=== PATIENT | female | born 1985 | race Caucasian/White ===

== ENCOUNTER 2018-01-04 19:28 | Emergency (ER) | payer BC ==
[~2018-01-04] VITALS: Ht 162.6 cm; Wt 50.0 kg
[~2018-01-04 19:28] MED LIST: AMBI10TA PO; CITA10SO PO; HYDR-3533 PO; IBUP800T23 PO; PRED50TA PO; XANA1TAB6 PO; ZYRT10TA12 PO
[2018-01-04 19:31] VITALS: BP 130/71; PULSE 63; RESP 22; TEMP 98.1; O2SAT 100
[2018-01-04] MEDS ORDERED: LEXA20TA PO (19:36)
[2018-01-04] MEDS ORDERED: DIAZ2 PO (19:36)
[2018-01-04] MEDS ORDERED: MORPHINE SULFATE 2 MG/ML INJ IV PUSH ONE (19:45)
[2018-01-04] MEDS ORDERED: KETOROLAC TROMETHAMINE 30 MG/ML (IVP) VIAL IV PUSH ONE (19:45)
[2018-01-04 20:00] VITALS: BP 89/54; PULSE 111; RESP 18; O2SAT 90
[2018-01-04] MEDS ORDERED: LORazepam 2 MG/ML VIAL IV PUSH ONE (20:00)
--- NOTE | 2018-01-04 20:00 | PD ---
HPI Chief Complaint: Abdominal Pain Time Seen by Provider: 19:36 Travel History International Travel<30 days: No Contact w/Intl Traveler<30days: No Traveled to known affect area: No History of Present Illness HPI Patient is a 32-year-old female coming in complaining of severe pelvic area pain and diffuse abdominal pain started 1 hour ago although she says she has been having some menstrual-like cramps for the last 2 days now is so severe the entire pelvic area denies discharge denies trauma. She does report that she has had a history of constipation and it is possible that this is related to that. She denies any change in medications she denies dysuria she does have severe central abdomen pelvic cramps not relieved by Motrin and a history of constipation. She also history of ovarian cyst but has never had a laparoscopic removal of a cyst she is screaming in agony in the ER slightly pain appearances out of proportion to most likely pathology. PFSH Past Medical History Anxiety: Yes Depression: Yes Diminished Hearing: No Immunizations Current: Yes Migraines: Yes : 0 Past Surgical History Other Surgery: Yes (RHINOPLASTY, BREAST AUGMENTATION) Social History Alcohol Use: Yes ( OCCASSIONAL ) Tobacco Use: Yes (occas) Substance Use: No Allergies-Medications (Allergen,Severity, Reaction): Coded Allergies: No Known Allergies (Verified Adverse Reaction, Unknown, 01/04/18) Reported Meds & Prescriptions Reported Meds & Active Scripts Active Miconazole 3 Vaginal Supp (Miconazole Nitrate) 200 Mg Supp 200 Mg VAGINAL HS Hydrocodone-Acetaminophen 5-300 Mg Tab 1 Tab PO Q6H PRN Zofran (Ondansetron HCl) 4 Mg Tab 4 Mg PO Q12HR PRN Cipro (Ciprofloxacin HCl) 500 Mg Tab 500 Mg PO BID Ibuprofen 600 Mg Tab 600 Mg PO Q6H PRN Reported Lexapro (Escitalopram Oxalate) 20 Mg Tab 20 Mg PO EVERY OTHER DAY Valium (Diazepam) 2 Mg Tab Unknown Dose PO DAILY PRN Review of Systems Except as stated in HPI: all other systems reviewed are Neg Gastrointestinal: Positive: Abdominal Pain, Constipation Physical Exam Narrative GENERAL: severe pain reaction screaming in pain diffuse and poor historian of actual area of pain ,, non focal covering her face with a towel SKIN: Warm and dry. HEAD: Atraumatic. Normocephalic. EYES: Pupils equal and round. No scleral icterus. No injection or drainage. ENT: No nasal bleeding or discharge. Mucous membranes pink and moist. NECK: Trachea midline. No JVD. CARDIOVASCULAR: Regular rate and rhythm. RESPIRATORY: No accessory muscle use. Clear to auscultation. Breath sounds equal bilaterally. GASTROINTESTINAL: Abdomen diffuse tenderness with no obvious focus to pain pain in all quadrants and suprapubic mostly soft non distended FAST POC US FAST NEGATIVE FOR FREE FLUID MUSCULOSKELETAL: Extremities without clubbing, cyanosis, or edema. No obvious deformities. NEUROLOGICAL: Awake and alert. No obvious cranial nerve deficits. Motor grossly within normal limits. Five out of 5 muscle strength in the arms and legs. Normal speech. PELVIC BLOOD IN VAULT THAT APPEARS NORMAL menstral blood no CMT normal appearance to cervix PSYCHIATRIC: Appropriate mood and affect; insight and judgment normal. Data Data Last Documented VS Vital Signs Date Time Temp Pulse Resp B/P (MAP) Pulse Ox O2 Delivery O2 Flow Rate FiO2 01/04/18 20:00 111 18 89/54 (66) 90 01/04/18 19:31 98.1 Orders Orders Ketorolac Inj (Toradol Inj) (01/04/18 19:45) Morphine Inj (Morphine Inj) (01/04/18 19:45) Complete Blood Count With Diff (01/04/18 19:38) Comprehensive Metabolic Panel (01/04/18 19:38) Lipase (01/04/18 19:38) Urinalysis - C+S If Indicated (01/04/18 19:38) Beta Hcg (Quant/Titer) (01/04/18 19:38) Lorazepam Inj (Ativan Inj) (01/04/18 20:00) Abdomen, Flat & Upright (01/04/18 ) Us Pelvis Comp W Dop Transvag (01/04/18 ) Wet Prep Profile (01/05/18 00:50) Gc And Chlamydia Pcr (01/05/18 00:50) Labs Laboratory Tests Test 01/04/18 19:47 01/04/18 22:10 01/05/18 00:30 White Blood Count 10.0 TH/MM3 Red Blood Count 4.13 MIL/MM3 Hemoglobin 13.7 GM/DL Hematocrit 39.4 % Mean Corpuscular Volume 95.4 FL Mean Corpuscular Hemoglobin 33.1 PG Mean Corpuscular Hemoglobin Concent 34.7 % Red Cell Distribution Width 12.4 % Platelet Count 263 TH/MM3 Mean Platelet Volume 7.9 FL Neutrophils (%) (Auto) 70.7 % Lymphocytes (%) (Auto) 22.9 % Monocytes (%) (Auto) 4.5 % Eosinophils (%) (Auto) 1.5 % Basophils (%) (Auto) 0.4 % Neutrophils # (Auto) 7.1 TH/MM3 Lymphocytes # (Auto) 2.3 TH/MM3 Monocytes # (Auto) 0.5 TH/MM3 Eosinophils # (Auto) 0.1 TH/MM3 Basophils # (Auto) 0.0 TH/MM3 CBC Comment DIFF FINAL Differential Comment Blood Urea Nitrogen 14 MG/DL Creatinine 0.71 MG/DL Random Glucose 104 MG/DL Total Protein 7.1 GM/DL Albumin 4.1 GM/DL Calcium Level 8.2 MG/DL Alkaline Phosphatase 69 U/L Aspartate Amino Transf (AST/SGOT) 12 U/L Alanine Aminotransferase (ALT/SGPT) 13 U/L Total Bilirubin 0.3 MG/DL Sodium Level 140 MEQ/L Potassium Level 3.4 MEQ/L Chloride Level 108 MEQ/L Carbon Dioxide Level 24.8 MEQ/L Anion Gap 7 MEQ/L Estimat Glomerular Filtration Rate 95 ML/MIN Lipase 72 U/L Human Chorionic Gonadotropin, Quant LESS THAN 1 MIU/ML Urine Color YELLOW Urine Turbidity CLEAR Urine pH 5.5 Urine Specific [place] 1.023 Urine Protein NEG mg/dL Urine Glucose (UA) NEG mg/dL Urine Ketones 150 mg/dL Urine Occult Blood MOD Urine Nitrite NEG Urine Bilirubin NEG Urine Urobilinogen LESS THAN 2.0 MG/DL Urine Leukocyte Esterase NEG Urine RBC 9 /hpf Urine WBC 1 /hpf Urine Squamous Epithelial Cells <1 /hpf Urine Bacteria RARE /hpf Urine Mucus FEW /lpf Microscopic Urinalysis Comment CULT NOT INDICATED Clue Cells (Wet Prep) NONE SEEN Vaginal Trichomonas (Wet Prep) NONE SEEN Vaginal Yeast (Wet Prep) NONE SEEN Chlamydia trachomatis DNA (PCR) NOT DETECTED Neisseria gonorrhoeae DNA (PCR) NOT DETECTED MDM Medical Decision Making Medical Screen Exam Complete: Yes Emergency Medical Condition: Yes Differential Diagnosis Severe abdominal pain and endometriosis possibly pancreatitis possibly pelvic PID possibly severe menstrual cramps possibly Narrative Course Patient ultrasound bed side fast negative for free fluid ultrasound done up official ovarian torsion there is increased vascularity to both ovaries which could correlate with her having her menses right now pelvic exam does not show any CMT and pushing on her cervix is not re-create the pain she came in today with patient's labs are within normal limits her urine is negative for UTI and I feel is safe to discharge her I gave her Toradol 2 of morphine and then 0.5 of Ativan she has not had any recurrence of the pain at this time and she is safe for discharge with close follow-up with her own doctor. Pt on discharge asling for nausea meds pain meds vaginitis meds . I offer ibuprofen , she reports that 'doesn't work I offer tramadol " gives her a headache " > write for 6 tabs of norco and ibuprofen and micanozole and d/c follow up outpt Procedures Procedure Narrative pelvic exam with cultures and wet prep Diagnosis Primary Impression: Pain in the abdomen Qualified Codes: R10.9 - Unspecified abdominal pain Patient Instructions: Abdominal Pain (ED), General Instructions Additional Instructions: Follow up with your own MD and animal physiology teacher for abdominal pain . Take cipro for 7 days and ibuprofen for pain Scripts Miconazole 3 Vaginal Supp (Miconazole 3 Vaginal Supp) 200 Mg Supp 200 MG VAGINAL HS for Infection, #3 SUPP 0 Refills Prov: Agusto Anders MD 01/05/18 Hydrocodone-Acetaminophen (Hydrocodone-Acetaminophen) 5-300 Mg Tab 1 TAB PO Q6H Y for PAIN, #6 TAB 0 Refills Prov: Agusto Anders MD 01/05/18 Ondansetron (Zofran) 4 Mg Tab 4 MG PO Q12HR Y for NAUSEA OR VOMITING, #10 TAB 0 Refills Prov: Agusto Anders MD 01/05/18 Ciprofloxacin (Cipro) 500 Mg Tab 500 MG PO BID for Infection, #14 TAB 0 Refills Prov: Agusto Anders MD 01/05/18 Ibuprofen (Ibuprofen) 600 Mg Tab 600 MG PO Q6H Y for Pain/Inflammation, #40 TAB 0 Refills Prov: Agusto Anders MD 01/05/18 Disposition: 01 DISCHARGE HOME Condition: Good Agusto Anders MD Jan 04, 2018 20:00
[2018-01-04 20:11] LABS: AUTOMATED NEUTROPHIL # 7.1 TH/MM3 (1.8-7.7); BASOPHIL % 0.4 % (0.0-2.0); EOSINOPHIL # 0.1 TH/MM3 (0-0.4); EOSINOPHIL % 1.5 % (0.0-4.0); HEMATOCRIT 39.4 % (35.0-46.0); HEMOGLOBIN 13.7 GM/DL (11.6-15.3); LYMPH % 22.9 % (9.0-44.0); LYMPHOCYTE # 2.3 TH/MM3 (1.0-4.8); MEAN CELL VOLUME 95.4 FL (80.0-100.0); MEAN CORPUSCULAR HEMOGLOBIN 33.1 PG (27.0-34.0); MEAN CORPUSCULAR HGB CONC 34.7 % (32.0-36.0); MEAN PLATELET VOLUME 7.9 FL (7.0-11.0); MONO % 4.5 % (0.0-8.0); MONOCYTE # 0.5 TH/MM3 (0-0.9); NEUT % 70.7 % (16.0-70.0); PLATELET COUNT 263 TH/MM3 (150-450); RED BLOOD COUNT 4.13 MIL/MM3 (4.00-5.30); RED CELL DISTRIBUTION WIDTH 12.4 % (11.6-17.2)
[2018-01-04 20:33] LABS: ALBUMIN 4.1 GM/DL (3.4-5.0); AST (GOT) 12 U/L (15-37); BICARBONATE 24.8 MEQ/L (21.0-32.0); BLOOD UREA NITROGEN 14 MG/DL (7-18); CALCIUM 8.2 MG/DL (8.5-10.1); CHLORIDE 108 MEQ/L (98-107); CREATININE 0.71 MG/DL (0.50-1.00); GLOMERULAR FILTRATION RATE 95 ML/MIN (>89); GLUCOSE,RANDOM 104 MG/DL (74-106); SODIUM (NA) 140 MEQ/L (136-145)
[2018-01-04 20:35] LABS: ALT (GPT) 13 U/L (10-53)
[2018-01-04 20:38] LABS: ALKALINE PHOSPHATASE 69 U/L (45-117); TOTAL BILIRUBIN ADULT 0.3 MG/DL (0.2-1.0); TOTAL PROTEIN 7.1 GM/DL (6.4-8.2)
--- NOTE | 2018-01-04 20:48 | RADRPT ---
EXAM DATE/TIME: 01/04/2018 20:18 [facility] COMPARISON: No previous studies available for comparison. INDICATIONS : Lower abdominal pain, nausea, and constipation. MEDICAL HISTORY : No pertinent medical history. SURGICAL HISTORY : No pertinent surgical history. ENCOUNTER: Initial ACUITY: 2 days PAIN SCORE: 7/10 LOCATION: Bilateral abdomen. FINDINGS: Supine and upright views of the abdomen were performed. Multiple loops of nondistended air-filled sma ll bowel in the mid to left upper abdomen. Air is seen throughout the colon. No air fluid levels are seen. No abnormal masses, calcifications, or organomegaly is seen. The visualized lower lungs are c lear. No evidence of free intraperitoneal gas. The osseous structures are unremarkable. CONCLUSION: 1. Nonspecific loops of nondistended air-filled small bowel. Ad Beasley MD on January 04, 2018 at 20:45 Board Certified Radiologist. This report was verified electronically.
[2018-01-04 22:38] LABS: BACTERIA, URINE RARE /hpf; BILIRUBIN, URINE NEG (NEG); BLOOD, URINE MOD (NEG); GLUCOSE,URINE NEG (NEG); KETONE, URINE 150 mg/dL (NEG); MUCUS URINE FEW /lpf (OCC); NITRITE,URINE NEG (NEG); PH, URINE 5.5 (5.0-8.5); SQUAMOUS EPITHELIAL CELL URINE <1 /hpf (0-5); URINE COLOR YELLOW (YELLW/STRAW); URINE LEUKOCYTE ESTERASE NEG (NEG)
--- NOTE | 2018-01-04 22:50 | RADRPT ---
EXAM DATE/TIME: 01/04/2018 21:50 [facility] COMPARISON: No previous studies available for comparison. INDICATIONS : Pelvic pain. MEDICAL HISTORY : Ovarian cysts. Migraines. Depression. Anxiety. SURGICAL HISTORY : Rhinoplasty. Breast augmentation. ENCOUNTER: Initial ACUITY: 1 day PAIN SCORE: 6/10 LOCATION: Bilateral pelvis MEASUREMENTS: UTERUS: 9.5 x 5.9 x 3.9 cm ENDOMETRIAL STRIPE: 4 mm RIGHT OVARY: 3.8 x 2.6 x 2.4 cm LEFT OVARY: 3.6 x 2.8 x 1.8 cm FINDINGS: UTERUS: Multiple small lower cervical cysts with the largest measuring 1.1 x 1.2 x 0.7 cm consistent with nab othian cysts. The myometrium has homogeneous echotexture without mass. RIGHT OVARY: Ovary contains no mass or significant cystic lesion. LEFT OVARY: Ovary contains no mass or significant cystic lesion. Small 1.3 x 1.3 x 0.9 cm simple appearing cyst i n the mid ovary. MISCELLANEOUS: Incidental note of enlarged right pelvic veins in the region of the right adnexa. CONCLUSION: 1. Multiple small apparent nabothian cysts the largest measuring 1.1 cm. 2. Small simple appearing 1.3 cm left ovarian cyst. This does not need further workup or followup. 3. Multiple enlarged pelvic veins in the region of the right adnexa. Although nonspecific, this may b e seen with pelvic congestion. Ad Beasley MD on January 04, 2018 at 22:45 Board Certified Radiologist. This report was verified electronically.
[2018-01-05] MEDS ORDERED: IBUP-232 PO (01:07)
[2018-01-05] MEDS ORDERED: CIPR-9 PO (01:09)
[2018-01-05] MEDS ORDERED: ZOFR4TAB PO (01:26)
[2018-01-05] MEDS ORDERED: MICO200V VAGINAL (01:26)
[2018-01-05] MEDS ORDERED: HYDR-4107 PO (01:26)
== END 2018-01-05 01:37 | disposition home or self-care (01) ==
LOC: NEPC 19:28
DX: R10.2 Pelvic and perineal pain (principal); K59.00 Constipation, unspecified; F32.9 Major depressive disorder, single episode, unspecified; Z72.0 Tobacco use
CPT/HCPCS: 74019; 76830; 76856; 80053; 81001; 83690; 84702; 85025; 87210; 87491; 87591; 93975; 96374; 96375; 99284; J1885; J2270